=== PATIENT | female | born 1995 | race Two or more races ===

== ENCOUNTER 2018-10-23 01:43 | Emergency (ER) | payer MEDICAID ==
[2018-10-23 01:52] VITALS: BP 140/85
--- NOTE | 2018-10-23 02:01 | EDPHY ---
H & P Stated Complaint: Anxiety Time Seen by Provider: 10/23/18 01:51 HPI/ROS: Chief Complaint: Anxiety, malaise, cough HPI: 23-year-old woman who states she thinks she is about a month based on a positive test. She is currently homeless. She was riding on a bus from [place] to [place] and fell sleep on the bus. [place] She became increasingly anxious began coughing with shortness of breath. She was seen at [facility] 1 week ago and diagnosed with influenza. No recent fevers or chills. No nausea or vomiting. Not currently complaining a shortness of breath. EMS treated her with humidified oxygen and no other treatments. No vaginal bleeding or discharge. No pelvic pain. No urinary urgency or frequency. Vital signs have been normal per EMS. She denies alcohol or drug use. ROS: 10 systems were reviewed and were negative except those elements noted in the HPI. PMH: Denies Social History: No smoking, no alcohol, CBD use Family History: non-contributory Physical Exam: Gen: Awake, Alert, No Distress HEENT: Nose: no rhinorrhea Eyes: PERRLA, EOMI Mouth: Moist mucosa Neck: Supple, no JVD Chest: nontender, lungs clear to auscultation Heart: S1, S2 normal, no murmur Abd: Soft, non-tender, no guarding Back: no CVA tenderness, no midline tenderness Ext: no edema, non-tender Skin: no rash Neuro: CN II-XII intact, Sensation grossly intact, Strength 5/5 in bilateral upper and lower extremities - Personal History Current Tetanus Diphtheria and Acellular Pertussis (TDAP): Unsure - Medical/Surgical History Hx Asthma: No Hx Chronic Respiratory Disease: No Hx Diabetes: No Hx Cardiac Disease: No Hx Renal Disease: No Hx Cirrhosis: No Hx Alcoholism: No Hx HIV/AIDS: No Hx Splenectomy or Spleen Trauma: No Other PMH: Anxiety, PTSD, depression, - Social History Smoking Status: Current every day smoker Constitutional: Initial Vital Signs Temperature (C) 36.8 C 10/23/18 01:49 Heart Rate 96 10/23/18 01:49 Respiratory Rate 16 10/23/18 01:49 Blood Pressure 140/85 H 10/23/18 01:49 O2 Sat (%) 97 10/23/18 01:49 O2 Delivery Mode Room Air Allergies/Adverse Reactions: amoxicillin Allergy (Verified 10/23/18 01:53) latex Allergy (Verified 10/23/18 01:53) nitrofurantoin [From Macrobid] Allergy (Verified 10/23/18 01:53) Home Medications: Medication Instructions Recorded Wellbutrin Sr 10/23/18 Medical Decision Making ED Course/Re-evaluation: 23-year-old presenting with cough and malaise, recent diagnosis of influenza a week ago. She has completely normal vital signs. She has a benign exam. No evidence of acute emergency condition or infection. Plan will be for discharge with follow-up with primary care. Departure - Departure Disposition: Home, Routine, Self-Care Clinical Impression: Dyspnea Condition: Good Instructions: Dyspnea (ED) Additional Instructions: Follow up at [facility] in 2-3 days for further evaluation. Return to the emergency department for increasing cough, shortness of breath, uncontrolled fevers or chills, pain, or any other concerns. Referrals: [facility],. [Clinic] - As per Instructions
== END 2018-10-23 02:22 | disposition home or self-care (01) ==
DX: O99.89 Other specified diseases and conditions complicating pregnancy, childbirth and the puerperium (principal); F41.9 Anxiety disorder, unspecified; R53.81 Other malaise; R05 Cough; Z59.0 Homelessness; Z3A.00 Weeks of gestation of pregnancy not specified